=== PATIENT | female | born 1965 | race Caucasian/White ===

== ENCOUNTER 2023-08-24 08:52 | Day surgery (SDC) | payer BC ==
[~2023-08-24 08:52] MED LIST: Lactated Ringers 1,000 ML IV SCH
[2023-08-24] MEDS ORDERED: Propofol 200 MG/20 ML SDV ONE ×2 (11:28→11:56)
[2023-08-24] MEDS ORDERED: fentaNYL 100 MCG/2 ML SDV ONE (11:28)
[2023-08-24 13:13] VITALS: BP 116/77; PULSE 59
== END 2023-08-24 13:35 | disposition home or self-care (01) ==
LOC: VM.SDS 08:52
PROVIDERS: ATTEND Student in an Organized Health Care Education/Training Program
DX: Z12.11 Encounter for screening for malignant neoplasm of colon (principal); D12.2 Benign neoplasm of ascending colon; K63.5 Polyp of colon; E78.2 Mixed hyperlipidemia; F39 Unspecified mood [affective] disorder; E66.9 Obesity, unspecified; Z68.32 Body mass index [BMI] 32.0-32.9, adult
CPT/HCPCS: 00812; 45380; J2704; J3010; J7120

== ENCOUNTER 2024-06-01 13:14 | Emergency (ER) | payer BC ==
[2024-06-01] MEDS: Lactated Ringers 1,000 ML IV ONE (13:39)
[2024-06-01 13:46] VITALS: PULSE 88
[2024-06-01 13:49] LABS: BASOPHILS PERCENT AUTO 0.1 % (0.2-1.2); EOSINOPHILS PERCENT AUTO 0.1 % (0.0-4.0); HEMATOCRIT 41.8 % (33.0-47.0); HEMOGLOBIN 14.2 g/dL (12.0-16.0); IMMATURE GRAN ABSOLUTE AUTO 0.01 x10^3/uL (0.00-0.07); LYMPHOCYTES ABSOLUTE AUTO 0.6 x10^3/uL (1.0-4.8); LYMPHOCYTES PERCENT AUTO 8.7 % (25.0-50.0); MEAN CORPUSCULAR HEMOGLOBIN 30.8 pg (26.0-32.0); MEAN CORPUSCULAR VOLUME 90.7 fL (78.0-93.0); MONOCYTES ABSOLUTE AUTO 0.7 x10^3/uL (0.0-0.8); MONOCYTES PERCENT AUTO 9.7 % (2.0-11.0); NEUTROPHILS ABSOLUTE AUTO 5.6 x10^3/uL (1.8-7.7); NEUTROPHILS PERCENT AUTO 81.3 % (50.0-80.0); PLATELET COUNT,PLT 214 x10^3/uL (130-400); RED BLOOD CELL COUNT 4.61 x10^6/uL (4.00-5.50); WHITE BLOOD CELL COUNT,WBC 6.9 x10^3/uL (4.0-10.0)
[2024-06-01] MEDS: Acetaminophen 500 MG Tab PO ONE (14:00)
[2024-06-01] MEDS: cefTRIAXone 1 GM Vial IVPUSH ONE (14:00)
[2024-06-01] MEDS: Ketorolac 15 MG/ML SDV IVPUSH ONE (14:01)
[2024-06-01 14:12] LABS: LACTIC ACID 1.7 mmol/L (0.4-2.0)
[2024-06-01 14:16] LABS: A/G RATIO 0.92; ALBUMIN 3.6 g/dL (3.4-5.0); BILIRUBIN TOTAL 0.3 mg/dL (0.2-1.0); C-REACTIVE PROTEIN 8.04 mg/dL (<=0.50); CALCIUM 9.7 mg/dL (8.5-10.1); CREATININE 0.9 mg/dL (0.55-1.02); EST CRCL DRUG DOSING (CG) 61.78 mL/min; MAGNESIUM 1.9 mg/dL (1.8-2.4); POTASSIUM,K 3.4 mmol/L (3.5-5.1); PROTEIN TOTAL,TP 7.5 g/dL (6.4-8.2)
[2024-06-01 14:19] LABS: ANION GAP 14.4 mmol/L (5-15)
[2024-06-01 14:29] LABS: PROTHROMBIN TIME 10.3 SEC (8.9-11.5); PTT,PARTIAL THROMBOPLSTIN TIME 30.5 SEC (21.9-33.8)
[2024-06-01 14:36] LABS: APPEARANCE,URINE CLEAR (CLEAR); BILIRUBIN,URINE NEGATIVE (NEGATIVE); COLOR,URINE LIGHT YELLOW (YELLOW); GLUCOSE,URINE NEGATIVE (NEGATIVE); KETONES,URINE NEGATIVE (NEGATIVE); LEUKOCYTE ESTERASE,URINE NEGATIVE (NEGATIVE); NITRITE,URINE NEGATIVE (NEGATIVE); OCCULT BLOOD,URINE TRACE-INTACT (NEGATIVE); PROTEIN,URINE NEGATIVE (NEGATIVE); UROBILINOGEN,URINE 0.2 EU/dL (0.2)
[2024-06-01 14:47] LABS: BACTERIA,URINE NOT SEEN /HPF (NOT SEEN); MUCUS,URINE NOT SEEN /LPF (NOT SEEN); RBC,URINE 0-5 /HPF (NOT SEEN); SQUAMOUS EPITHELIAL CELLS,UR FEW /HPF (NOT SEEN); WBC,URINE NOT SEEN /HPF (NOT SEEN)
[2024-06-01] MEDS: Take Home: Ketorolac 10 MG Tab, 4 Tab Pack PO ONE (15:00)
[2024-06-01 17:28] VITALS: BP 139/78
== END 2024-06-01 15:00 | disposition home or self-care (01) ==
LOC: VM.ED 13:14 → SUPCPDRO 13:14 → VM.ED 15:00
DX: U07.1 COVID-19 (principal); J10.1 Influenza due to other identified influenza virus with other respiratory manifestations; E66.9 Obesity, unspecified; Z68.32 Body mass index [BMI] 32.0-32.9, adult; Z90.49 Acquired absence of other specified parts of digestive tract
CPT/HCPCS: 36415; 71045; 80053; 81001; 83605; 83735; 83880; 84484; 85025; 85379; 85610; 85730; 86140; 87040; 87428; 87651; 93005; 93010; 96361; 96374; 96375; 99284; 99285; A9270; J0696; J1885; J7120